=== PATIENT | female | born 1935 | race Caucasian/White ===

== ENCOUNTER 2021-03-12 19:47 | Observation (INO) | payer MEDICARE, OTHER ==
[~2021-03-12] VITALS: Ht 165.1 cm; Wt 70.8 kg
[2021-03-12] MEDS ORDERED: CLONIDINE HCL 0.2 MG TAB PO ONE (20:30)
[2021-03-12 20:45] LABS: BASOPHILS # (AUTO) 0.1 (0.0-0.1); BASOPHILS % 1.1 % (0.0-1.0); EOSINOPHILS # (AUTO) 0.2 (0.0-0.4); HEMATOCRIT 29.6 % (34.2-44.1); HEMOGLOBIN 9.7 g/dL (12.0-16.0); LYMPHOCYTES # (AUTO) 1.1 (1.0-3.2); LYMPHOCYTES % 23.1 % (18.0-39.1); MEAN CORPUSCULAR HEMOGLOBIN 30.8 pg (28-32); MEAN CORPUSCULAR HGB CONC 32.8 g/dL (31-35); MONOCYTES # (AUTO) 0.4 (0.2-0.8); MONOCYTES % 7.6 % (4.4-11.3); NEUTROPHILS % 64.2 % (38.7-80.0); PLATELET COUNT 142 x10e3/uL (140-360); RED BLOOD COUNT 3.15 x10e6/uL (3.6-5.1); RED CELL DISTRIBUTION WIDTH 13.2 % (11.7-14.4)
[2021-03-12 20:52] LABS: CLARITY,URINE CLEAR (CLEAR); COLOR,URINE YELLOW (YELLOW)
[2021-03-12 20:53] LABS: KETONES,URINE NEGATIVE (NEGATIVE); LEUKOCYTE ESTERASE ,URINE NEGATIVE (NEGATIVE); NITRITE,URINE NEGATIVE (NEGATIVE); PROTEIN,URINE DIPSTICK >=300 (NEGATIVE); URINE UROBILINOGEN 0.2 mg/dL (0.2 - 1)
[2021-03-12 20:58] LABS: ALBUMIN/GLOBULIN RATIO 0.9 (0.8-2.0); ANION GAP 16.6 mmol/L (8-16); BACTERIA,URINE RARE /HPF; CALCIUM 9.5 mg/dL (8.4-10.2); CREATININE, SERUM 4.37 mg/dL (0.57-1.11); EPITHELIAL CELLS,URINE FEW /LPF; POTASSIUM 3.6 mmol/L (3.5-5.1); RBC,URINE 0-5 /HPF (0-5); WBC,URINE (MAN) 0-5 /HPF (0-5)
[2021-03-12] MEDS ORDERED: ONDANSETRON HCL INJ 2MG/ML 2ML 2 MG/ML VIAL IV PRN (22:15)
[2021-03-12] MEDS ORDERED: FUROSEMIDE INJ 10 MG/ML 4 ML VIAL IV ONE (23:00)
[2021-03-12] MEDS ORDERED: NIFEDIPINE CR 30 MG TAB PO ONE (23:00)
[2021-03-12] MEDS: HYDRALAZINE HCL 20 MG/ML VIAL IV PRN (23:21)
[2021-03-13] VITALS (9 sets, daily range): BP systolic 153–225; BP diastolic 55–99
[2021-03-13] MEDS ORDERED: DOCUSATE SODIUM (01:52)
[2021-03-13] MEDS ORDERED: MONTELUKAST SOD10 MG PO (01:52)
[2021-03-13] MEDS ORDERED: ASPIRIN81 MG PO (01:52)
[2021-03-13] MEDS ORDERED: LASIX40 MG PO (01:52)
[2021-03-13] MEDS ORDERED: LOSARTAN POTASS50 MG PO (01:52)
[2021-03-13] MEDS ORDERED: CLONIDINE HCL0.2 MG PO (01:52)
[2021-03-13] MEDS ORDERED: SYNTHROID75 MCG PO (01:52)
[2021-03-13] MEDS ORDERED: [UNRECOGNIZED DRUG - OTHER] (01:52)
[2021-03-13] MEDS ORDERED: TENORMIN100 MG PO (01:52)
[2021-03-13] MEDS ORDERED: CLONIDINE HCL0.1 MG PO (01:52)
[2021-03-13] MEDS ORDERED: ATORVASTATIN CA10 MG PO (01:52)
[2021-03-13] MEDS: HYDRALAZINE HCL 20 MG/ML VIAL IV PRN ×2 (04:47→12:08)
[2021-03-13] MEDS: NIFEDIPINE CR 30 MG TAB PO SCH ×3 (06:01→17:03)
[2021-03-13 08:28] LABS: BASOPHILS % 0.7 % (0.0-1.0); EOSINOPHILS # (AUTO) 0.1 (0.0-0.4); EOSINOPHILS % 1.4 % (0.0-6.0); HEMATOCRIT 31.7 % (34.2-44.1); HEMOGLOBIN 10.4 g/dL (12.0-16.0); LYMPHOCYTES # (AUTO) 0.9 (1.0-3.2); LYMPHOCYTES % 15.5 % (18.0-39.1); MEAN CORPUSCULAR HEMOGLOBIN 30.4 pg (28-32); MEAN CORPUSCULAR HGB CONC 32.8 g/dL (31-35); MEAN CORPUSCULAR VOLUME 92.7 fL (81-99); MONOCYTES # (AUTO) 0.4 (0.2-0.8); MONOCYTES % 6.2 % (4.4-11.3); NEUTROPHILS # (AUTO) 4.3 (2.1-6.9); PLATELET COUNT 143 x10e3/uL (140-360); RED BLOOD COUNT 3.42 x10e6/uL (3.6-5.1); RED CELL DISTRIBUTION WIDTH 13.2 % (11.7-14.4)
[2021-03-13] MEDS: FUROSEMIDE INJ 10 MG/ML 4 ML VIAL IV SCH (08:31)
[2021-03-13 08:59] LABS: ANION GAP 18.8 mmol/L (8-16); CALCIUM 9.4 mg/dL (8.4-10.2); CREATININE, SERUM 4.22 mg/dL (0.57-1.11); POTASSIUM 3.8 mmol/L (3.5-5.1)
[2021-03-13] MEDS: LOSARTAN POTASSIUM 100 MG TAB PO SCH (17:00)
[2021-03-14] VITALS: BP 162/61
[2021-03-14 04:00] VITALS: BP 132/94
[2021-03-14 07:29] LABS: ANION GAP 15.2 mmol/L (8-16); CALCIUM 8.8 mg/dL (8.4-10.2); CREATININE, SERUM 4.44 mg/dL (0.57-1.11); POTASSIUM 3.2 mmol/L (3.5-5.1)
[2021-03-14 07:50] VITALS: BP 127/86
[2021-03-14 08:02] VITALS: BP 127/56
[2021-03-14] MEDS: LOSARTAN POTASSIUM 100 MG TAB PO SCH ×2 (09:29→17:54)
[2021-03-14] MEDS: FUROSEMIDE INJ 10 MG/ML 4 ML VIAL IV SCH (09:29)
[2021-03-14 11:30] VITALS: BP 182/66
[2021-03-14] MEDS: NIFEDIPINE CR 30 MG TAB PO SCH ×2 (11:30→17:00)
[2021-03-14] MEDS ORDERED: POTASSIUM CHLORIDE 10MEQ EA PO ONE (15:00)
[2021-03-14 15:26] VITALS: BP 156/55
[2021-03-15] MEDS ORDERED: COLLAGENASE 5 GM TUBE TOP SCH (09:00)
== END 2021-03-14 19:05 | disposition home or self-care (01) ==
LOC: ER 21:25 → ERHOLD 22:19 → INTOOBSV 22:19 → MED/SURG3 03-13 00:04
PROVIDERS: ADMIT Internal Medicine; ATTEND Internal Medicine
DX: E87.70 Fluid overload, unspecified (principal); I13.2 Hypertensive heart and chronic kidney disease with heart failure and with stage 5 chronic kidney disease, or end stage renal disease; N18.6 End stage renal disease; D63.1 Anemia in chronic kidney disease; I50.9 Heart failure, unspecified; Z88.2 Allergy status to sulfonamides; Z91.041 Radiographic dye allergy status; E11.21 Type 2 diabetes mellitus with diabetic nephropathy; I16.0 Hypertensive urgency; N28.1 Cyst of kidney, acquired; Z20.822 Contact with and (suspected) exposure to COVID-19
CPT/HCPCS: 36415 ×3; 71045; 76770; 80048 ×2; 80053; 81001; 82948 ×2; 83880; 84484; 85025 ×2; 93005; 93306; 97116; 97139; 97162; 97530; 97602; 99251; 99284; G0378 ×3; J0360 ×2; J1940 ×3; J2405; U0002